=== PATIENT | female | born 1980 | race Hispanic/Latino ===

== ENCOUNTER 2017-01-01 22:23 | Emergency (ER) | payer SELFPAY ==
[~2017-01-01] VITALS: Ht 167.6 cm; Wt 67.9 kg
[2017-01-02] MEDS ORDERED: KEFLEX500 MG PO (00:46)
[2017-01-02 00:53] VITALS: BP 116/73
== END 2017-01-02 00:58 | disposition home or self-care (01) ==
LOC: EME 22:23
PROC: 0H98XZZ Drainage of Buttock Skin, External Approach (ICD-10-PCS; principal; 2017-01-01)
DX: L02.31 Cutaneous abscess of buttock (principal)
CPT/HCPCS: 99281; 99283

== ENCOUNTER 2017-01-19 22:54 | Emergency (ER) | payer SELFPAY ==
[~2017-01-19 22:54] MED LIST: KEFLEX500 MG PO
== END 2017-01-19 23:09 | disposition left against medical advice (07) ==
LOC: EME 22:54
DX: Z53.21 Procedure and treatment not carried out due to patient leaving prior to being seen by health care provider (principal)